=== PATIENT | female | born 1975 | race Caucasian/White ===

== ENCOUNTER 2016-06-26 14:57 | Emergency (ER) | payer BC, OTHER ==
[~2016-06-26] VITALS: Ht 185.4 cm; Wt 93.5 kg
--- OUTSIDE RECORDS SUMMARY | 2016-06-26 15:01 | XMS REPORT | Continuity of Care Document ---
Author Author [facility] Address Unknown Phone Unavailable Allergies Medications Problems Procedures Results Encounters ACCT No. Visit Date/Time Discharge Status Pt. Type Provider Facility Loc./Unit Complaint [id number] 01/24/2013 15:15:00 2012 23:59:59 [facility] Outpatient
--- OUTSIDE RECORDS SUMMARY | 2016-06-26 15:03 | XMS REPORT | Continuity of Care Document ---
Author Author [facility] Address Unknown Phone Unavailable Allergies Medications Problems Procedures Results Encounters ACCT No. Visit Date/Time Discharge Status Pt. Type Provider Facility Loc./Unit Complaint [id number] 01/24/2013 15:15:00 2012 23:59:59 [facility] Outpatient
[2016-06-26 15:50] LABS: BASOPHILS % (AUTO) 0 % (0-2); EOSINOPHILS # (AUTO) 0.2 10^3uL; EOSINOPHILS % (AUTO) 2 % (0-4); LYMPHOCYTES # (AUTO) 2.1 X10^3; MEAN CORPUSCULAR HEMOGLOBIN 31.1 PG (26.0-34.0); MEAN CORPUSCULAR HGB CONC 34.9 g/dL (31.0-37.0); MEAN CORPUSCULAR VOLUME 89 FL (80-100); MEAN PLATELET VOLUME 9.7 FL (6.0-9.5); MONOCYTES # (AUTO) 0.6 X10^3; MONOCYTES % (AUTO) 8 % (3-11); NEUTROPHILS # (AUTO) 5.4 X10^3; NEUTROPHILS % (AUTO) 65 % (51-67); PLATELET COUNT 228 10^3uL (150-450); WHITE BLOOD COUNT 8.35 10^3uL (4.0-11.0)
[2016-06-26 15:55] LABS: BILIRUBIN,URINE Negative (Negative); CLARITY,URINE Cloudy; COLOR,URINE Yellow; GLUCOSE, URINE (UA) Negative (Negative); LEUKOCYTE ESTERASE ,URINE Negative (Negative); PH,URINE 7.5 (5.0 - 8.0)
[2016-06-26 15:58] LABS: RBC,URINE >100 /HPF; URINE CENTRIFUGED VOLUME 12 mL
[2016-06-26 16:03] LABS: ALBUMIN 3.9 g/dL (3.4-5.0); CALCULATED IONIZED CALCIUM 3.9 mg/dL (3.8-4.6); TOTAL PROTEIN 6.9 g/dL (6.4-8.5)
[2016-06-26] MEDS ORDERED: KETOROLAC 30 MG/ML (TORADOL) 1 ML VIAL IV ONE (16:10)
[2016-06-26] MEDS ORDERED: ONDANSETRON 2 MG/ML (Z0FRAN) 2 ML VIAL IV ONE (16:10)
[2016-06-26] MEDS ORDERED: NS IV 500 ML 500 ML IV SCH (16:10)
[2016-06-26] MEDS ORDERED: SODIUM CHLORIDE FLUSH 10 ML SYR IV PRN (16:15)
[2016-06-26] MEDS ORDERED: SODIUM CHLORIDE FLUSH 3 ML SYR IV ONE (16:15)
--- NOTE | 2016-06-26 16:56 | Diagnostic Imaging Report ---
PROCEDURE: CT abdomen and pelvis without contrast. TECHNIQUE: Multiple contiguous axial images were obtained through the abdomen and pelvis without the use of intravenous contrast. INDICATION: Abdominal pain. COMPARISON: 02/23/2010. FINDINGS: The lung bases are clear. The liver appears unremarkable. The gallbladder is contracted which is nonspecific but may be postprandial. There is no biliary dilatation. The pancreas, spleen and adrenal glands appear unremarkable. The kidneys appear unremarkable with the exception of a small cyst in the posterior medial right renal cortex which appears similar to the prior CT. No ureteral stone or obstructive uropathy is seen. The appendix is visualized originating from the cecal tip on image #96 of series 2. It extends posteriorly in a retrocecal fashion and is slightly prominent. It measures about 7 mm in diameter. Distally, however, it dilates up to a diameter of approximately 8 to 9 mm. No definite discrete wall thickening or inflammatory changes seen. No abscess or free fluid is seen. Uterus and adnexa appear unremarkable. No evidence of diverticulitis. Abdominal aorta appears normal in caliber. No acute osseous abnormality is seen. IMPRESSION: 1. No evidence of an acute urinary tract abnormality. 2. The appendix is identified and is somewhat equivocal in appearance. It is mildly dilated and prominent, however, no wall thickening or significant inflammatory change is seen. It is retrocecal in position which may have an atypical clinical presentation. Correlate clinically. 3. No additional abnormalities demonstrated. Dictated by: Dictated on workstation # [id number]
[2016-06-26] MEDS ORDERED: HYDR-3702 PO (17:50)
[2016-06-26] MEDS ORDERED: PRM25T PO (17:50)
[2016-06-26] MEDS ORDERED: ONDA4TAB8 PO (18:24)
[2016-06-26 18:39] VITALS: BP 130/0
[2016-06-27] MEDS ORDERED: PROPOFOL 20 ML IV ONE (15:25)
[2016-06-27] MEDS ORDERED: ALFENTANIL 1,000 MCG/2 ML AMP IV ONE (15:25)
[2016-06-27] MEDS ORDERED: SUCCINYLCHOLINE 20 MG/ML 10 ML VIAL ONE (15:25)
[2016-06-27] MEDS ORDERED: ROCURONIUM 50 MG/5 ML (ZEMURON) VIAL IV ONE (15:25)
[2016-06-27] MEDS ORDERED: GLYCOPYRROLATE 0.2 MG/ML (ROBINUL) 1 ML VIAL ONE (15:45)
[2016-06-27] MEDS ORDERED: NEOSTIGMINE 1 MG/ML SYRINGE ONE (15:45)
[2016-06-27] MEDS ORDERED: KETOROLAC 60 MG/2 ML (TORADOL) VIAL IM ONE (15:45)
[2016-06-27] MEDS ORDERED: ONDANSETRON 2 MG/ML (Z0FRAN) 2 ML VIAL ONE (16:23)
== END 2016-06-26 18:20 | disposition home or self-care (01) ==
LOC: ED 14:59
DX: R10.31 Right lower quadrant pain (principal); R94.8 Abnormal results of function studies of other organs and systems
CPT/HCPCS: 36415; 74176; 80053; 81003; 81015; 82150; 83690; 84443; 84703; 85025; 86140; 96374; 96375; 99283; J0330; J1885; J2405; J2710; J3490; J7040

== ENCOUNTER 2016-06-27 12:50 | Day surgery (SDC) | payer OTHER ==
[~2016-06-27] VITALS: Ht 185.4 cm; Wt 93.8 kg
--- NOTE | 2016-06-27 12:54 | NUR ---
Patient arrives ambulatory to room 306 direct admit from home. Patient reports RLQ pain rated 8/10 on pain scale and headache. 20g IV Initiated into left hand on first attempt by this nurse. Patient tolerates well. See admission for full assessment.
[2016-06-27] MEDS ORDERED: LACTATED RINGERS 1,000 ML IV SCH (13:05)
[2016-06-27 13:56] LABS: ANION GAP 12.1 MEQ/L (3-15)
[2016-06-27] MEDS ORDERED: LEVOFLOXACIN 500 MG/100 ML IV 100 ML IV ONE (14:25)
--- NOTE | 2016-06-27 14:32 | NUR ---
Med Rec completed via conversation with patient. She does not take any prescription or OTC medications regularly.
--- NOTE | 2016-06-27 14:45 | NUR ---
Surgical consent signed and placed on chart.
[2016-06-27 14:48] LABS: BASOPHILS % (AUTO) 0 % (0-2); EOSINOPHILS # (AUTO) 0.2 10^3uL; EOSINOPHILS % (AUTO) 2 % (0-4); LYMPHOCYTES # (AUTO) 1.5 X10^3; MEAN CORPUSCULAR HEMOGLOBIN 31.5 PG (26.0-34.0); MEAN CORPUSCULAR HGB CONC 35.3 g/dL (31.0-37.0); MEAN CORPUSCULAR VOLUME 89 FL (80-100); MEAN PLATELET VOLUME 9.9 FL (6.0-9.5); MONOCYTES # (AUTO) 0.6 X10^3; MONOCYTES % (AUTO) 8 % (3-11); NEUTROPHILS # (AUTO) 4.4 X10^3; NEUTROPHILS % (AUTO) 66 % (51-67); PLATELET COUNT 221 10^3uL (150-450); WHITE BLOOD COUNT 6.64 10^3uL (4.0-11.0)
[2016-06-27] MEDS ORDERED: BUPIVACAINE/EPINEPHRINE 0.5%-1:200,000 (MARCAINE) 30 ML VIAL INJ ONE (14:56)
--- NOTE | 2016-06-27 15:19 | NUR ---
Patient to OR via bed.
[2016-06-27] MEDS ORDERED: HYDROmorphone 1 MG/ML (DILAUDID) SYRINGE ONE (16:45)
[2016-06-27 17:05] VITALS: BP 109/62
[2016-06-27 17:20] VITALS: BP 133/57
[2016-06-27] MEDS ORDERED: ONDANSETRON 2 MG/ML (Z0FRAN) 2 ML VIAL IV PRN (17:20)
[2016-06-27] MEDS ORDERED: morphine INJ 2 MG/ML 1 ML SYRINGE IV PRN (17:20)
[2016-06-27] MEDS ORDERED: METOCLOPRAMIDE 10 MG/2 ML (REGLAN) VIAL IV PRN (17:20)
--- NOTE | 2016-06-27 17:24 | NUR ---
Patient returns to room 306 via bed from OR. Alert and oriented X3. Reports abdominal pain rated 3/10 on pain scale. Vital signs WNL. IV saline locked per order. Three abdominal incisions with 2X2 and Tegaderm CDAT. Patient updated on post-op plan of care. Call light in reach.
[2016-06-27 17:35] VITALS: BP 101/77
[2016-06-27 17:50] VITALS: BP 115/79
[2016-06-27 18:05] VITALS: BP 130/76
--- NOTE | 2016-06-27 18:29 | NUR ---
Patient sitting up in bed. Tolerates clear liquid supper tray well. Voids without difficulty at 1800. PRN Ultram provided for c/o abdominal pain rated 6/10 after activity. Prescription provided to and filled. Call light in reach.
[2016-06-27 18:30] VITALS: BP 129/66
--- NOTE | 2016-06-27 19:01 | NUR ---
patient meets required parameters for discharge. Discharge instructions provided with verbal and written understanding expressed. IV discontinued with catheter intact. No redness or swelling noted at insertion site. Dismissed ambulatory to private car accompanied by BRANCH DIRECTOR. No further needs.
== END 2016-06-27 19:03 | disposition home or self-care (01) ==
LOC: MED/SURG 12:50 → UNDOADMOB 12:50 → ASC 12:50 → MED/SURG 12:50 → ASC 19:03 → UNDODISOB 19:03
PROVIDERS: ATTEND Surgery
DX: K35.3 Acute appendicitis with localized peritonitis (principal); F17.210 Nicotine dependence, cigarettes, uncomplicated
CPT/HCPCS: 36415; 44970; 80048; 84703; 85025; 99218; J1170; J7120

== ENCOUNTER → 2016-08-06 | Outpatient (CLI) | payer OTHER ==
[~2016-08-06] MED LIST: HYDR-3702 PO; ONDA4TAB8 PO; PRM25T PO
--- NOTE | 2016-08-06 14:44 | Diagnostic Imaging Report ---
INDICATION: Left shoulder pain. FINDINGS: There is no fracture, dislocation, erosion, or acute articular incongruity. No loose body. No soft tissue calcifications. IMPRESSION: Negative. Dictated by: Dictated on workstation # [id number]
== END ==
LOC: RAD 10:14
PROVIDERS: ATTEND Family Medicine
DX: M25.512 Pain in left shoulder (principal)
CPT/HCPCS: 73030

== ENCOUNTER 2016-08-18 08:00 | Outpatient (RCR) | payer OTHER | END 2016-08-22 12:00 | disposition home or self-care (01) | LOC: PT 08:00 | PROVIDERS: ATTEND Family Medicine | DX: M25.512 Pain in left shoulder (principal) ==